=== PATIENT | female | born 1935 | race Two or more races ===

== ENCOUNTER → 2016-08-12 | Outpatient (CLI) | payer MEDICARE, MEDICAID ==
--- NOTE | 2016-08-12 12:43 | Diagnostic Imaging Report ---
Indications: COUGH Technique: AP and lateral chest Findings: Comparison: None Lungs normally, symmetrically inflated and clear. No pleural abnormality. Heart size, pulmonary vasculature within normal limits. Thoracic aorta calcified, elongated, tortuous. Old, unfused, displaced fracture proximal left humerus. Osteophytes lower thoracic spine. IMPRESSION: No evidence of acute cardiopulmonary disease Aortosclerosis and probable chronic hypertensive change Old fracture left humerus Degenerative spondylosis
== END | disposition home or self-care (01) ==
LOC: RAD 12:00
DX: R05 Cough (principal); I70.0 Atherosclerosis of aorta; M47.894 Other spondylosis, thoracic region; S42.302G Unspecified fracture of shaft of humerus, left arm, subsequent encounter for fracture with delayed healing; X58.XXXD Exposure to other specified factors, subsequent encounter
CPT/HCPCS: 71020